=== PATIENT | female | born 1950 | race African-American/Black ===

== ENCOUNTER 2020-12-26 14:52 | Emergency (ER) | payer OTHER ==
[~2020-12-26 14:52] MED LIST: DUONEB 2.5-0.5M1 AMP INH; HYDRALAZINE25 MG PO; KEPPRA250 MG PO; LACTINEX1 EACH PO; LASIX40 MG PO; LEVAQUIN 500MG500 MG PO; NEXIUM40 MG PO; OXYBUTYNIN CHLOR5 M1 PO; PHENYTEK200 MG PO; PREDNISONE 10MG10 MG PO; SPIRONOLACTONE25 M1 PO; VITAMIN D250000 UNIT PO; ZOLOFT50 MG PO; ZYRTEC10 MG PO
== END 2020-12-26 19:29 | disposition home or self-care (01) ==
LOC: FER 14:52
DX: S16.1XXA Strain of muscle, fascia and tendon at neck level, initial encounter (principal); J45.909 Unspecified asthma, uncomplicated; V49.40XA Driver injured in collision with unspecified motor vehicles in traffic accident, initial encounter; Y92.410 Unspecified street and highway as the place of occurrence of the external cause
CPT/HCPCS: 70450; 71250; 72125; J1100

== ENCOUNTER 2021-03-15 07:11 | Emergency (ER) | payer MEDICARE, OTHER ==
[2021-03-15 07:40] LABS: BASOPHIL 0.8 % (0-2); EOSINOPHIL 10.3 % (0-7); HCT 40.4 % (37.0-47.0); HGB 12.7 g/dl (12.5-16.0); LYMPHOCYTE 13.8 % (15-48); MCH 27.3 pg (25.0-31.0); MCHC 31.4 g/dL (32.0-36.0); MCV 86.7 fL (78.0-100.0); MONOCYTE 8.6 % (0-12); MPV 9.4 fL (6.0-9.5); NEUTROPHIL 66.2 % (41-80); NRBC 0; PLT 275 K/uL (150-400); RBC 4.66 M/uL (4.20-5.40); RDW 15.2 % (11.5-14.0); WBC 7.8 K/uL (4.0-10.5)
[2021-03-15 08:03] LABS: ALBUMIN 2.7 g/dL (3.4-5.0); BILIRUBIN - TOTAL 0.4 mg/dL (0.2-1.0); BUN/CREAT RATIO (CALC) 23.1 RATIO; CREATININE 0.52 mg/dL (0.51-0.95); GLOBULIN (CALCULATION) 5.1 g/dL; POTASSIUM 4.2 mmol/L (3.5-5.1); TOTAL PROTEIN 7.8 g/dL (6.4-8.2)
[2021-03-15] MEDS ORDERED: NORCO 5-325 TA1 EACH PO (09:27)
== END 2021-03-15 09:40 | disposition home or self-care (01) ==
LOC: FER 07:11
PROVIDERS: Emergency Medicine
DX: R07.89 Other chest pain (principal); C34.12 Malignant neoplasm of upper lobe, left bronchus or lung; M54.2 Cervicalgia; I10 Essential (primary) hypertension; J44.9 Chronic obstructive pulmonary disease, unspecified; Z88.8 Allergy status to other drugs, medicaments and biological substances; Z87.891 Personal history of nicotine dependence; Z79.899 Other long term (current) drug therapy
CPT/HCPCS: 36415; 71045; 80053; 85025; 93005; J2270; J2405

== ENCOUNTER 2021-10-22 19:36 | Emergency (ER) | payer MEDICARE ==
[~2021-10-22 19:36] MED LIST changes: +NORCO 5-325 TA1 EACH PO
[2021-10-22 20:47] LABS: CORONAVIRUS 2019 SARS-COV-2 NEGATIVE (NEGATIVE); INFLUENZA A NAA NEGATIVE (NEGATIVE)
[2021-10-22 21:12] LABS: BASOPHIL 0.6 % (0-2); EOSINOPHIL 2.9 % (0-7); LYMPHOCYTE 42.5 % (15-48); MCH 30.7 pg (25.0-31.0); MCHC 32.6 g/dL (32.0-36.0); MCV 94.1 fL (78.0-100.0); MONOCYTE 14.7 % (0-12); NRBC 0; PLT 127 K/uL (150-400); RBC 4.89 M/uL (4.20-5.40); RDW 16.3 % (11.5-14.0); WBC 3.1 K/uL (4.0-10.5)
[2021-10-22 22:50] LABS: BUN/CREAT RATIO (CALC) 35.7 RATIO; CREATININE 0.56 mg/dL (0.51-0.95); POTASSIUM 3.9 mmol/L (3.5-5.1)
[2021-10-22] MEDS ORDERED: DUONEB 2.5-0.5M1 AMP INH (23:21)
[2021-10-24] MEDS ORDERED: BUMEX1 MG PO (10:08)
[2021-10-24] MEDS ORDERED: AZELASTINE205.5 MCG/ (10:08)
[2021-10-24] MEDS ORDERED: XYZAL5 MG PO (10:09)
[2021-10-24] MEDS ORDERED: REQUIP0.25 MG PO (10:10)
[2021-10-24] MEDS ORDERED: PROTONIX 40MG T40 MG PO (10:10)
[2021-10-24] MEDS ORDERED: METOLAZONE 5MG T5 M1 PO (10:10)
[2021-10-24] MEDS ORDERED: ZOCOR40 MG PO (10:11)
== END 2021-10-23 00:29 | disposition home or self-care (01) ==
LOC: FER 19:36
PROVIDERS: Nurse Practitioner Family
DX: R06.02 Shortness of breath (principal); I10 Essential (primary) hypertension; J44.9 Chronic obstructive pulmonary disease, unspecified; Z88.5 Allergy status to narcotic agent; Z88.7 Allergy status to serum and vaccine; Z87.891 Personal history of nicotine dependence; Z20.822 Contact with and (suspected) exposure to COVID-19
CPT/HCPCS: 36415; 36600; 71045; 72100; 80048; 82803; 83880; 85025; 93005; J1100; U0002

== ENCOUNTER 2021-10-23 18:49 | Inpatient (IN) | payer MEDICARE ==
[~2021-10-23] VITALS: Ht 165.1 cm; Wt 127.0 kg
[2021-10-23 21:57] LABS: BASOPHIL 0.5 % (0-2); EOSINOPHIL 1.6 % (0-7); HGB 15.7 g/dl (12.5-16.0); LYMPHOCYTE 23.9 % (15-48); MCH 30.1 pg (25.0-31.0); MONOCYTE 12.7 % (0-12); MPV 10.3 fL (6.0-9.5); NEUTROPHIL 61.1 % (41-80); NRBC 0; PLT 120 K/uL (150-400); RBC 5.21 M/uL (4.20-5.40); RDW 14.5 % (11.5-14.0); WBC 4.4 K/uL (4.0-10.5)
[2021-10-23 22:18] LABS: ALBUMIN 3.3 g/dL (3.4-5.0); BILIRUBIN - TOTAL 0.4 mg/dL (0.2-1.0); BUN/CREAT RATIO (CALC) 37.3 RATIO; CREATININE 0.51 mg/dL (0.51-0.95); POTASSIUM 3.3 mmol/L (3.5-5.1); TOTAL PROTEIN 7.3 g/dL (6.4-8.2)
[2021-10-23 22:36] LABS: CORONAVIRUS 2019 SARS-COV-2 NEGATIVE (NEGATIVE); INFLUENZA A NAA NEGATIVE (NEGATIVE)
[2021-10-24 00:57] LABS: BILIRUBIN 2+ mg/dL (NEGATIVE); BLOOD 1+ Ery/uL (NEGATIVE); CLARITY CLEAR (CLEAR); COLOR YELLOW (YELLOW); GLUCOSE (U) NORMAL (NORMAL); LEUKOCYTES NEGATIVE Leu/uL (NEGATIVE); NITRITE NEGATIVE (NEGATIVE); PROTEIN 1+ mg/dL (NEGATIVE); SPECIFIC GRAVITY >=1.030 (1.001-1.030)
[2021-10-24 01:06] LABS: BACTERIA 1+; MUCOUS MODERATE; URINARY WBC RARE
[2021-10-24 06:31] LABS: BASOPHIL 0.6 % (0-2); EOSINOPHIL 1.2 % (0-7); HCT 47.1 % (37.0-47.0); HGB 14.7 g/dl (12.5-16.0); LYMPHOCYTE 24.2 % (15-48); MCHC 31.2 g/dL (32.0-36.0); MCV 96.1 fL (78.0-100.0); MONOCYTE 13.3 % (0-12); NEUTROPHIL 60.7 % (41-80); NRBC 0; PLT 113 K/uL (150-400); RDW 14.7 % (11.5-14.0); WBC 3.3 K/uL (4.0-10.5)
[2021-10-24 06:32] LABS: BUN/CREAT RATIO (CALC) 36.7 RATIO; CREATININE 0.6 mg/dL (0.51-0.95); POTASSIUM 3.4 mmol/L (3.5-5.1)
[2021-10-24] MEDS ORDERED: BUMEX1 MG PO (10:08)
[2021-10-24] MEDS ORDERED: AZELASTINE205.5 MCG/ (10:08)
[2021-10-24] MEDS ORDERED: XYZAL5 MG PO (10:09)
[2021-10-24] MEDS ORDERED: METOLAZONE 5MG T5 M1 PO (10:10)
[2021-10-24] MEDS ORDERED: PROTONIX 40MG T40 MG PO (10:10)
[2021-10-24] MEDS ORDERED: REQUIP0.25 MG PO (10:10)
[2021-10-24] MEDS ORDERED: ZOCOR40 MG PO (10:11)
[2021-10-25 05:32] LABS: BASOPHIL 0.3 % (0-2); EOSINOPHIL 1.4 % (0-7); HCT 44.6 % (37.0-47.0); HGB 13.9 g/dl (12.5-16.0); LYMPHOCYTE 27.3 % (15-48); MCH 29.6 pg (25.0-31.0); MCHC 31.2 g/dL (32.0-36.0); MCV 95.1 fL (78.0-100.0); MONOCYTE 11.2 % (0-12); MPV 9.5 fL (6.0-9.5); NEUTROPHIL 59.8 % (41-80); NRBC 0; RBC 4.69 M/uL (4.20-5.40); RDW 14.7 % (11.5-14.0); WBC 3.5 K/uL (4.0-10.5)
[2021-10-25 05:38] LABS: ALBUMIN 2.9 g/dL (3.4-5.0); BILIRUBIN - TOTAL 0.2 mg/dL (0.2-1.0); BUN/CREAT RATIO (CALC) 36.5 RATIO; CREATININE 0.63 mg/dL (0.51-0.95); GLOBULIN (CALCULATION) 3.8 g/dL; POTASSIUM 3.5 mmol/L (3.5-5.1); TOTAL PROTEIN 6.7 g/dL (6.4-8.2)
[2021-10-25 05:46] LABS: PLT 100 K/uL (150-400)
[2021-10-27 05:55] LABS: HCT 46.9 % (37.0-47.0); HGB 14.8 g/dl (12.5-16.0); MCH 29.8 pg (25.0-31.0); MCHC 31.6 g/dL (32.0-36.0); MCV 94.6 fL (78.0-100.0); RBC 4.96 M/uL (4.20-5.40); RDW 14.6 % (11.5-14.0)
[2021-10-27 06:14] LABS: BUN/CREAT RATIO (CALC) 25.9 RATIO; CREATININE 0.58 mg/dL (0.51-0.95); MAGNESIUM 1.4 mg/dL (1.8-2.4); POTASSIUM 3.2 mmol/L (3.5-5.1)
== END 2021-10-27 15:11 | disposition home or self-care (01) | DRG 189 ==
LOC: FER 18:49 → FTCU 10-24 01:13 → FMS 10-24 01:13 → FTCU 10-24 06:00 → FMS 10-25 12:27
PROVIDERS: Internal Medicine; Nurse Practitioner; ADMIT Internal Medicine
PROC: 5A09357 Assistance with Respiratory Ventilation, Less than 24 Consecutive Hours, Continuous Positive Airway Pressure (ICD-10-PCS; principal; 2021-10-23)
PROC: 5A09357 Assistance with Respiratory Ventilation, Less than 24 Consecutive Hours, Continuous Positive Airway Pressure (ICD-10-PCS; 2021-10-25)
PROC: 5A09357 Assistance with Respiratory Ventilation, Less than 24 Consecutive Hours, Continuous Positive Airway Pressure (ICD-10-PCS; 2021-10-27)
DX: J96.22 Acute and chronic respiratory failure with hypercapnia (principal); G93.41 Metabolic encephalopathy; E66.2 Morbid (severe) obesity with alveolar hypoventilation; Z68.42 Body mass index [BMI] 45.0-49.9, adult; J96.21 Acute and chronic respiratory failure with hypoxia; J44.9 Chronic obstructive pulmonary disease, unspecified; Z20.822 Contact with and (suspected) exposure to COVID-19; I25.10 Atherosclerotic heart disease of native coronary artery without angina pectoris; I48.91 Unspecified atrial fibrillation; I11.0 Hypertensive heart disease with heart failure; I50.9 Heart failure, unspecified; K21.9 Gastro-esophageal reflux disease without esophagitis; G40.909 Epilepsy, unspecified, not intractable, without status epilepticus; D50.9 Iron deficiency anemia, unspecified; F32.A Depression, unspecified; Z96.653 Presence of artificial knee joint, bilateral; Z90.49 Acquired absence of other specified parts of digestive tract; Z87.891 Personal history of nicotine dependence; Z99.81 Dependence on supplemental oxygen; Z90.710 Acquired absence of both cervix and uterus; Z98.890 Other specified postprocedural states; Z79.899 Other long term (current) drug therapy
CPT/HCPCS: 36415; 36600; 70450; 71045; 71275; 72100; 80048; 80053; 81001; 82140; 82803; 83605; 83690; 83735; 83880; 84145; 84484; 85025; 87040; 93005; 94640; 94660; 94760; J1100; J1642; J1650; Q9967; U0002

== ENCOUNTER 2022-01-04 18:45 | Emergency (ER) | payer MEDICARE ==
[~2022-01-04 18:45] MED LIST changes: +AZELASTINE205.5 MCG/; +BUMEX1 MG PO; +METOLAZONE 5MG T5 M1 PO; +PROTONIX 40MG T40 MG PO; +REQUIP0.25 MG PO; +XYZAL5 MG PO; +ZOCOR40 MG PO
[2022-01-04 20:18] LABS: BASOPHIL 0.8 % (0-2); EOSINOPHIL 3.3 % (0-7); HCT 44.3 % (37.0-47.0); HGB 13.9 g/dl (12.5-16.0); MCH 29.3 pg (25.0-31.0); MCHC 31.4 g/dL (32.0-36.0); MCV 93.5 fL (78.0-100.0); MONOCYTE 13.5 % (0-12); MPV 10.2 fL (6.0-9.5); NEUTROPHIL 40.1 % (41-80); NRBC 0; PLT 141 K/uL (150-400); RBC 4.74 M/uL (4.20-5.40); RDW 17.4 % (11.5-14.0); WBC 3.6 K/uL (4.0-10.5)
[2022-01-04 20:32] LABS: INR 1.08 (0.9-1.2); PROTHROMBIN TIME 13.4 SECONDS (11.8-13.4); PTT 29.7 SECONDS (24.4-34.7)
[2022-01-04 20:44] LABS: ALBUMIN 3.2 g/dL (3.4-5.0); BILIRUBIN - TOTAL 0.3 mg/dL (0.2-1.0); BUN/CREAT RATIO (CALC) 26.7 RATIO; CREATININE 0.6 mg/dL (0.51-0.95); GLOBULIN (CALCULATION) 3.9 g/dL; POTASSIUM 4.2 mmol/L (3.5-5.1); TOTAL PROTEIN 7.1 g/dL (6.4-8.2)
== END 2022-01-04 21:34 | disposition home or self-care (01) ==
LOC: FER 18:45
PROVIDERS: Internal Medicine
DX: H52.13 Myopia, bilateral (principal); H26.9 Unspecified cataract; H10.13 Acute atopic conjunctivitis, bilateral; I25.10 Atherosclerotic heart disease of native coronary artery without angina pectoris; I10 Essential (primary) hypertension; F17.210 Nicotine dependence, cigarettes, uncomplicated
CPT/HCPCS: 36415; 70450; 80053; 83690; 84484; 85025; 85610; 85730; 93005

== ENCOUNTER 2022-01-15 20:48 | Day surgery (SDCO) | payer MEDICARE ==
[~2022-01-15] VITALS: Ht 157.5 cm; Wt 118.8 kg
[2022-01-15 22:32] LABS: BASOPHIL 0.9 % (0-2); EOSINOPHIL 2.9 % (0-7); HCT 42.3 % (37.0-47.0); HGB 13.6 g/dl (12.5-16.0); LYMPHOCYTE 35.5 % (15-48); MCHC 32.2 g/dL (32.0-36.0); MCV 93.4 fL (78.0-100.0); MONOCYTE 14.2 % (0-12); MPV 11.3 fL (6.0-9.5); NEUTROPHIL 46.2 % (41-80); NRBC 0; PLT 166 K/uL (150-400); RBC 4.53 M/uL (4.20-5.40); RDW 15.7 % (11.5-14.0); WBC 3.4 K/uL (4.0-10.5)
[2022-01-15 23:56] LABS: ALBUMIN 3.1 g/dL (3.4-5.0); ALKALINE PHOSHATASE 130 U/L (46-116); ALT 25 U/L (14-59); AST 40 U/L (15-37); BILIRUBIN - TOTAL 0.6 mg/dL (0.2-1.0); BUN 12 mg/dL (7-18); BUN/CREAT RATIO (CALC) 25.5 RATIO; CHLORIDE 103 mmol/L (98-107); CO2 (BICARBONATE) 32 mmol/L (21-32); CREATININE 0.47 mg/dL (0.51-0.95); GLOBULIN (CALCULATION) 3.7 g/dL; GLUCOSE 77 mg/dL (74-106); LIPASE 50 U/L (73-393); MAGNESIUM 1.6 mg/dL (1.8-2.4); POTASSIUM 3.4 mmol/L (3.5-5.1); TOTAL PROTEIN 6.8 g/dL (6.4-8.2)
[2022-01-15 23:57] LABS: ACETAMINOPHEN (TYLENOL) <2.0 ug/mL (10.0-30.0)
[2022-01-16 00:31] LABS: BILIRUBIN 1+ mg/dL (NEGATIVE); BLOOD 1+ Ery/uL (NEGATIVE); COLOR YELLOW (YELLOW); GLUCOSE (U) NORMAL (NORMAL); LEUKOCYTES NEGATIVE Leu/uL (NEGATIVE); NITRITE NEGATIVE (NEGATIVE); PROTEIN TRACE (LOW) mg/dL (NEGATIVE); SPECIFIC GRAVITY 1.015 (1.001-1.030)
[2022-01-16 00:33] LABS: CLARITY SLIGHTLY HAZY (CLEAR)
[2022-01-16 00:37] LABS: AMPHETAMINES NEGATIVE (NEGATIVE); BARBITURATES NEGATIVE (NEGATIVE); ECSTASY (MDMA) NEGATIVE (NEGATIVE); MARIJUANA (THC) NEGATIVE (NEGATIVE); METHADONE NEGATIVE (NEGATIVE); OPIATES NEGATIVE (NEGATIVE); OXYCODONE NEGATIVE (NEGATIVE)
[2022-01-16 00:39] LABS: BACTERIA TRACE; URINARY WBC RARE
[2022-01-16 00:40] LABS: AMORPHOUS URATES CRYSTALS TRACE
[2022-01-17 06:49] LABS: HCT 43.7 % (37.0-47.0); HGB 13.7 g/dl (12.5-16.0); MCH 29.8 pg (25.0-31.0); MCHC 31.4 g/dL (32.0-36.0); MCV 95.2 fL (78.0-100.0); RBC 4.59 M/uL (4.20-5.40); RDW 15.4 % (11.5-14.0)
[2022-01-17 07:56] LABS: BILIRUBIN - TOTAL 0.5 mg/dL (0.2-1.0); BUN/CREAT RATIO (CALC) 27.3 RATIO; CREATININE 0.55 mg/dL (0.51-0.95); GLOBULIN (CALCULATION) 3.6 g/dL; POTASSIUM 3.3 mmol/L (3.5-5.1); TOTAL PROTEIN 6.6 g/dL (6.4-8.2)
[2022-01-17] MEDS ORDERED: SEROQUEL 25MG T25 MG PO (08:28)
== END 2022-01-17 10:48 | disposition home health service (06) ==
LOC: FER 20:48 → FMS 01-16 01:23
PROVIDERS: Internal Medicine; Nurse Practitioner; ADMIT Internal Medicine
DX: R41.0 Disorientation, unspecified (principal); F03.90 Unspecified dementia, unspecified severity, without behavioral disturbance, psychotic disturbance, mood disturbance, and anxiety; J96.12 Chronic respiratory failure with hypercapnia; J96.11 Chronic respiratory failure with hypoxia; J44.9 Chronic obstructive pulmonary disease, unspecified; C34.90 Malignant neoplasm of unspecified part of unspecified bronchus or lung; I11.0 Hypertensive heart disease with heart failure; I50.9 Heart failure, unspecified; K21.9 Gastro-esophageal reflux disease without esophagitis; G47.33 Obstructive sleep apnea (adult) (pediatric); Z72.820 Sleep deprivation; Z91.19 Patient's noncompliance with other medical treatment and regimen; Z87.891 Personal history of nicotine dependence; Z79.899 Other long term (current) drug therapy; Z88.8 Allergy status to other drugs, medicaments and biological substances
CPT/HCPCS: 36415; 36600; 70450; 71250; 72131; 80053; 80305; 81001; 82803; 83690; 83735; 83880; 84145; 84484; 85025; 93005; 94640; 94664; 94760; G0378; G0480; J0696; J1100; J1650; J1953; J3490; J8540